=== PATIENT | male | born 1935 | race Caucasian/White ===

== ENCOUNTER 2017-03-30 08:51 | Emergency (ER) | payer MEDICARE, OTHER ==
--- NOTE | 2017-03-30 09:44 | RADIOLOGY REPORT (SQ) ---
EXAM DESCRIPTION: HIP LEFT AP/LATERAL COMPLETED DATE/TIME: 03/30/2017 9:32 am REASON FOR STUDY: hip pain COMPARISON: None. NUMBER OF VIEWS: Two views. TECHNIQUE: AP pelvis and additional frog-leg view of the left hip. LIMITATIONS: None. FINDINGS: MINERALIZATION: Normal. LEFT HIP: No fracture or dislocation. Joint space narrowing with sclerosis and small osteophytes. N o worrisome bone lesions. RIGHT HIP: No fracture or dislocation. Joint space narrowing with sclerosis and small osteophytes. No worrisome bone lesions. PUBIS AND ISCHIUM: No fracture. PELVIS: No fracture. There is relative radiolucency in the left iliac bone adjacent to the acetabulu m. SACRUM: No fracture or dislocation. No worrisome bone lesions. LOWER LUMBAR SPINE: No fracture or dislocation. No worrisome bone lesions. Degenerative disc disease . SOFT TISSUES: No findings. OTHER: No other significant finding. IMPRESSION: 1. MILD DEGENERATIVE CHANGES IN THE HIPS. NO ACUTE TRAUMATIC FINDINGS. 2. RELATIVE RADIOLUCENCY IN THE LEFT ILIAC BONE ADJACENT TO THE ACETABULUM, PARTICULARLY WHEN COMPARE D TO THE RIGHT SIDE. THIS COULD BE ARTIFACT DUE TO OVERLAPPING STRUCTURES AND OSTEOPENIA. CANNOT EX CLUDE POSSIBILITY OF A LYTIC LESION. CT SCAN MAY BE HELPFUL TO DETERMINE IF THERE IS ANY BONY PATHOL OGY. TECHNICAL DOCUMENTATION: JOB ID: [id number]- All Rights Reserved
[2017-03-30 10:30] LABS: ABSOLUTE BASOPHILS # (AUTO) 0.1 10^3/uL (0.0-0.2); ABSOLUTE EOSINOPHILS # (AUTO) 0.2 10^3/uL (0.0-0.6); ABSOLUTE LYMPHOCYTES (AUTO) 1.6 10^3/uL (0.5-4.7); ABSOLUTE MONOCYTES (AUTO) 0.8 10^3/uL (0.1-1.4); ABSOLUTE NEUT (AUTO) 6.7 10^3/uL (1.7-8.2); BASOPHILS % (AUTO) 0.6 % (0-2); EOSINOPHILS % (AUTO) 1.9 % (0-6); HEMATOCRIT 45.2 % (37.9-51.0); HGB HCT DIFFERENCE 2.8; LYMPHOCYTES % (AUTO) 17.6 % (13-45); MEAN CORPUSCULAR HEMOGLOBIN 31.1 pg (27.0-33.4); MEAN CORPUSCULAR HGB CONC 35.3 g/dL (32.0-36.0); MEAN CORPUSCULAR VOLUME 88 fl (80-97); MONOCYTES % (AUTO) 8.6 % (3-13); RED BLOOD COUNT 5.14 10^6/uL (4.35-5.55); RED CELL DISTRIBUTION WIDTH 12.6 % (11.5-14.0); SEGMENTED NEUTROPHILS % (AUTO) 71.3 % (42-78); WHITE BLOOD COUNT 9.4 10^3/uL (4.0-10.5)
--- NOTE | 2017-03-30 10:49 | ER Document Report ---
ED General - General Chief Complaint: Fall Stated Complaint: FALL/LEFT HIP PAIN Time Seen by Provider: 03/30/17 09:01 Mode of Arrival: Medic Information source: Patient Notes: 81-year-old male presents with complaints of left hip pain as well as difficulty swallowing. Patient notes hip pain has been ongoing now for weeks he took a fall has been able to ambulate. Patient also notes that he has been unable to swallow solid foods for approximately 2-3 weeks and has been eating soft pured food as a result. Patient denies any fevers or chills nausea vomiting or diarrhea notes the food gets stuck and comes back up a few times TRAVEL OUTSIDE OF THE [place] IN LAST 30 DAYS: No - HPI Onset: Other Onset/Duration: Persistent Quality of pain: Achy Severity: Mild Pain Level: 1 Associated symptoms: Body/muscle aches Exacerbated by: Movement Relieved by: Denies Similar symptoms previously: No Recently seen / treated by doctor: No - Related Data Allergies/Adverse Reactions: No Known Allergies Allergy (Verified 03/30/17 09:42) Past Medical History - Social History Smoking Status: Never Smoker Cigarette use (# per day): No Chew tobacco use (# tins/day): Yes Smoking Education Provided: No Frequency of alcohol use: None Drug Abuse: None Family History: Reviewed & Not Pertinent, Other - Past Medical History Cardiac Medical History: Reports: Hx Hypertension Renal/ Medical History: Denies: Hx Peritoneal Dialysis - Immunizations Hx Diphtheria, Pertussis, Tetanus Vaccination: Yes Review of Systems - Review of Systems Notes: REVIEW OF SYSTEMS: CONSTITUTIONAL : Denies fever, chills, or sweats. Denies recent illness. EENT: Admits to difficulty swallowing CARDIOVASCULAR: Denies chest pain. Denies palpitations or racing or irregular heart beat. Denies ankle edema. RESPIRATORY: Denies cough, cold, or chest congestion. Denies shortness of breath, difficulty breathing, or wheezing. GASTROINTESTINAL: Denies abdominal pain or distention. Denies nausea, vomiting , or diarrhea. Denies blood in vomitus, stools, or per rectum. Denies black, tarry stools. Denies constipation. GENITOURINARY: Denies difficulty urinating, painful urination, burning, frequency, blood in urine, or discharge. MUSCULOSKELETAL: Admits to hip pain SKIN: Denies rash, lesions or sores. HEMATOLOGIC : Denies easy bruising or bleeding. LYMPHATIC: Denies swollen, enlarged glands. NEUROLOGICAL: Denies confusion or altered mental status. Denies passing out or loss of consciousness. Denies dizziness or lightheadedness. Denies headache. Denies weakness or paralysis or loss of use of either side. Denies problems with gait or speech. Denies sensory loss, numbness, or tingling. Denies seizures. PSYCHIATRIC: Denies anxiety or stress. Denies depression, suicidal ideation, or homicidal ideation. ALL OTHER SYSTEMS REVIEWED AND NEGATIVE. Dictation was performed using [employer] voice recognition software PHYSICAL EXAMINATION: GENERAL: Well-appearing, well-nourished and in no acute distress. HEAD: Atraumatic, normocephalic. EYES: Pupils equal round and reactive to light, extraocular movements intact, sclera anicteric, conjunctiva are normal. ENT: Nares patent, oropharynx clear without exudates. Moist mucous membranes. NECK: Normal range of motion, supple without lymphadenopathy LUNGS: Breath sounds clear to auscultation bilaterally and equal. No wheezes rales or rhonchi. HEART: Regular rate and rhythm without murmurs ABDOMEN: Soft, nontender, nondistended abdomen. No guarding, no rebound. No masses appreciated. Musculoskeletal: Normal range of motion, no pitting or edema. No cyanosis. NEUROLOGICAL: Cranial nerves grossly intact. Normal speech, normal gait. Normal sensory, motor exams PSYCH: Normal mood, normal affect. SKIN: Warm, Dry, normal turgor, no rashes or lesions noted. Physical Exam - Vital signs Vitals: Temp Pulse Resp BP Pulse Ox 97.5 F 66 18 119/69 99 03/30/17 08:56 03/30/17 08:56 03/30/17 08:56 03/30/17 08:56 03/30/17 08:56 Course - Re-evaluation Re-evalutation: 03/30/17 12:18 Patient's images are concerning for a lytic lesion in his left hip as well as esophageal mass causing stricture. Patient was notified of these results as well as family member. I did speak with on-call oncologist and we will get the patient into the office immediately today - Vital Signs Vital signs: Temp Pulse Resp BP Pulse Ox 97.5 F 66 18 119/69 99 03/30/17 08:56 03/30/17 08:56 03/30/17 08:56 03/30/17 08:56 03/30/17 08:56 - Laboratory Result Diagrams: 03/30/17 10:18 03/30/17 10:18 - Diagnostic Test Radiology reviewed: Image reviewed, Reports reviewed - Lytic lesion noted of the hip, concerning for cancer, stricture of the throat concerning for cancer Discharge - Discharge Clinical Impression: Esophageal stricture, Lytic bone lesion of hip Condition: Stable Disposition: HOME, SELF-CARE Additional Instructions: You must go directly to the oncologist office upon discharge Referrals: LALITO RASMUSSEN MD [ACTIVE STAFF] - 03/30/17
--- NOTE | 2017-03-30 11:30 | RADIOLOGY REPORT (SQ) ---
EXAM DESCRIPTION: CT PELVIS WITHOUT COMPLETED DATE/TIME: 03/30/2017 10:49 am REASON FOR STUDY: bony lesion? COMPARISON: None. TECHNIQUE: CT scan of the pelvis performed without intravenous or oral contrast. Images reviewed wi th soft tissue and bone windows. Reconstructed coronal and sagittal MPR images reviewed. All images stored on PACS. All CT scanners at this facility use dose modulation, iterative reconstruction, and/or weight based d osing when appropriate to reduce radiation dose to as low as reasonably achievable (ALARA). [facility]: Dose Right [facility]: CareDose [facility]: Dose Right [facility]: Teradose 4D [facility]: [employer] RADIATION DOSE: 9.5mGy. LIMITATIONS: None. FINDINGS: PELVIC BONES: On images 45-67 of the coronal series there can be seen the large lytic lesi on in the left acetabulum and ilium. This appears to be an expansile lesion. There appears to be a cleavage plane between the mass and the internal obturator muscle. See image 78 series 2. The media l cortex appears to be either destroyed or markedly attenuated. VISUALIZED SPINE: No acute findings. HIP(S): Moderate degenerative joint changes are present. PELVIC SOFT TISSUES: Urinary bladder is normal. No intrinsic pelvic masses seen. There is no free f luid. EXTRAPELVIC SOFT TISSUES: No significant findings. OTHER: No other significant finding. IMPRESSION: There is a large lytic lesion on the left as described. Is there a history of known brian plasm? TECHNICAL DOCUMENTATION: JOB ID: [id number] Quality ID # [id number]: Final reports with documentation of one or more dose reduction techniques (e.g., Au tomated exposure control, adjustment of the mA and/or kV according to patient size, use of iterative reconstruction technique) 2010 [employer]- All Rights Reserved
[2017-03-30] MEDS ORDERED: MORPHINE SULFATE 10 MG/ML INJ IV ONE (12:10)
[2017-03-30] MEDS ORDERED: HYDROCOD/ACETAMIN 7.5-325 MG/15 ML ORAL SOLN UDCUP PO ONE (12:39)
--- NOTE | 2017-03-30 12:48 | RADIOLOGY REPORT (SQ) ---
EXAM DESCRIPTION: BARIUM SWALLOW ESOPHAGUS COMPLETED DATE/TIME: 03/30/2017 11:54 am REASON FOR STUDY: difficulty swallowing COMPARISON: None. TECHNIQUE: Under fluoroscopic guidance, patient ingested water soluble contrast and thin barium. Flu oroscopic spot images and routine radiographic images acquired and stored on PACS. 12 MM BARIUM TABLET GIVEN: Yes. Significant delay in the passage of tablet at GE junction at site of irregular narrowing for approxim ately 30 minutes. LIMITATIONS: None. FLUOROSCOPY TIME: 1.6 minutes 14 fluoroscopy images saved to PACS. FINDINGS: NEUROMUSCULAR COORDINATION OF SWALLOW: Normal. No aspiration. ESOPHAGEAL MOTILITY: Normal primary peristalsis. No esophageal spasm. ESOPHAGEAL MUCOSA: There is a fixed irregular stricture in the distal esophagus resulting in a mild d elay in the passage of barium and significant delay in the passage of a 12.5 mm barium tablet. This is concerning for malignancy an upper endoscopy is recommended for direct visualization. GASTRO-ESOPHAGEAL JUNCTION: A small sliding hiatal hernia is identified. No evidence gastroesophagea l reflux seen during the study. NON-GI TRACT STRUCTURES: No significant finding. OTHER: Incidentally noted are 2 moderate size duodenal diverticula. IMPRESSION: 1. FIXED IRREGULAR STRICTURE IN THE DISTAL ESOPHAGUS CONCERNING FOR MALIGNANCY, AND RES ULTING IN SIGNIFICANT DELAY IN THE PASSAGE OF 12 MM BARIUM TABLE ABOVE. UPPER ENDOSCOPY IS RECOMM ENDED FOR DIRECT VISUALIZATION. 2. SMALL SLIDING HIATAL HERNIA. 3. INCIDENTALLY NOTED 2 MODERATE SIZE DUODENAL DIVERTICULA. COMMENT: Report was called to Dr. Neumann at 1205 hours. Quality ID [id number]: Final reports for procedures using fluoroscopy that document radiation exposure pao laci, or exposure time and number of fluorographic images (if radiation exposure indices are not avail able) TECHNICAL DOCUMENTATION: JOB ID: [id number] [employer]- All Rights Reserved
[2017-03-30 12:57] LABS: ALANINE AMINOTRANSFERASE 30 U/L (21-72); ALKALINE PHOSPHATASE 138 U/L (38-126); ANION GAP 15 (5-19); ASPARTATE AMINO TRANSFERASE 22 U/L (17-59); BILIRUBIN,DIRECT 0.8 mg/dL (0.0-0.4); BILIRUBIN,TOTAL 1.6 mg/dL (0.2-1.3); BLOOD UREA NITROGEN 33 mg/dL (7-20); CALCIUM 9.6 mg/dL (8.4-10.2); CARBON DIOXIDE 20 mmol/L (22-30); CHLORIDE 104 mmol/L (98-107); CREATININE RESULT 1.91 mg/dL (0.52-1.25); GLUCOSE 95 mg/dL (75-110); SODIUM 139.3 mmol/L (137-145); TOTAL PROTEIN 7.1 g/dL (6.3-8.2)
[2017-03-30 13:29] VITALS: BP 178/60
== END 2017-03-30 13:28 | disposition home or self-care (01) ==
LOC: ER 08:51
DX: K22.2 Esophageal obstruction (principal); M89.9 Disorder of bone, unspecified; M25.552 Pain in left hip; W19.XXXA Unspecified fall, initial encounter; R13.10 Dysphagia, unspecified
CPT/HCPCS: 36415; 72192; 74220; 80053; 85025; 99284

== ENCOUNTER 2017-04-02 11:22 | Day surgery (SDC) | payer MEDICARE, OTHER ==
[~2017-04-02 11:22] MED LIST: DIPHENHYDRAMINE HCL 50 MG/ML VIAL ONE; EPINEPHRINE INJ 1 MG/10 ML DISP.SYRIN ONE; FENTANYL CITRATE INJ/PF 100 MCG/2 ML AMPUL ONE; FLUMAZENIL INJ 0.5 MG/5 ML VIAL IV ONE; GLUCAGON,HUMAN RECOMB 1 MG INJ ONE; MIDAZOLAM 2 MG/2 ML INJ ONE; NALOXONE HCL INJ/PF 0.4 MG/1 ML SDV ONE; ONDANSETRON HCL INJ/PF 4 MG/2 ML SDV ONE
--- NOTE | 2017-04-02 13:04 | Operative Report ---
Operative Report DATE OF SURGERY: 04/02/17 Operative Report: The risks benefits and alternatives of the procedure explained to the patient in detail and informed consent is obtained.A GIF Olympus video scope was inserted into the patient's mouth and hypopharynx, the esophagus is identified intubated and insufflated, the scope was then advanced through the esophagus stomach and duodenum ,retroflexion maneuver is done, the esophagus stomach and first and second portions of the duodenum examined PREOPERATIVE DIAGNOSIS: Dysphagia. Weight loss. 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 Hiatal hernia. Gastritis. Several duodenal ulcers, not actively bleeding OPERATION: EGD with biopsy SURGEON: ALLY BENDER ANESTHESIA: Moderate Sedation - 2 mg of Versed, 2.5 mg of fentanyl. Conscious sedation monitoring time 30 minutes. TISSUE REMOVED OR ALTERED: As described above. COMPLICATIONS: None. ESTIMATED BLOOD LOSS: None. INTRAOPERATIVE FINDINGS: As described above. PROCEDURE: Patient tolerated procedure well. No immediate postprocedure complications are noted. Patient discharged in good condition. Discharge date 04/02/2017. Discharge diet: Regular. Discharge activity: Regular. 1 week follow-up to discuss findings. Patient is instructed to call the office should there be any further problems or questions. We will wait on pathology. We will complete 1 L of normal saline prior to discharge. May require stent placement with PEG placement at a tertiary institution.
[2017-04-02 14:11] VITALS: BP 184/67
== END 2017-04-02 14:39 | disposition home or self-care (01) ==
LOC: END 11:22
PROVIDERS: ATTEND Internal Medicine Gastroenterology
PROC: 0DB58ZX Excision of Esophagus, Via Natural or Artificial Opening Endoscopic, Diagnostic (ICD-10-PCS; 2017-04-02)
PROC: 0DB68ZX Excision of Stomach, Via Natural or Artificial Opening Endoscopic, Diagnostic (ICD-10-PCS; principal; 2017-04-02 11:30)
DX: C80.1 Malignant (primary) neoplasm, unspecified (principal); K29.50 Unspecified chronic gastritis without bleeding; K44.9 Diaphragmatic hernia without obstruction or gangrene; K22.8 Other specified diseases of esophagus; R63.4 Abnormal weight loss; Z68.26 Body mass index [BMI] 26.0-26.9, adult; F17.210 Nicotine dependence, cigarettes, uncomplicated; I10 Essential (primary) hypertension; E78.00 Pure hypercholesterolemia, unspecified; Z79.899 Other long term (current) drug therapy; Z79.82 Long term (current) use of aspirin
CPT/HCPCS: 43239; 88342 ×2; 88305 ×2; J2250; J3010; J1610; J0171; J1200; J2310; J2405; J3490

== ENCOUNTER → 2017-04-03 | Outpatient (CLI) | payer MEDICARE, OTHER ==
--- NOTE | 2017-04-05 13:42 | RADIOLOGY REPORT (SQ) ---
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 TECHNIQUE: Blood glucose level was verified. Above dose of FDG was injected intravenously. 2-D seg mented attenuation correction images were obtained from the base of the skull to the midthighs. Nonc ontrast CT images were obtained for attenuation correction and fusion with emission images. CT image s were performed without oral or intravenous contrast and are not sensitive for parenchymal lesions. A series of overlapping emission PET images were obtained. Images reviewed and manipulated at [facility] work station by the radiologist. Images stored on PACS. LIMITATIONS: None. FINDINGS: HEAD AND NECK: No areas of abnormal metabolic activity in the soft tissues of the head and neck. CHEST: Distal esophageal circumferential increased activity from patient's esophageal cancer, SUV 8.6 . ABDOMEN AND PELVIS: Just below the hemidiaphragms, a 2 x 1 cm lymph node is present on axial image 12 1 between the right harman of the hemidiaphragm and inferior vena cava. This has SUV of 3.0. PROXIMAL LOWER EXTREMITIES: No areas of abnormal metabolic activity in the soft tissues of the lower extremities. BONES: Lytic destruction of the T5 spinous process is present thigh soft tissue difficult to measure , with SUV of 8.6. A right posterior 7th rib fracture is present with SUV of 4.8 which may be a pathologic fracture. In the right posterior innominate bone, a 3.5 x 3.2 cm lytic destructive lesion is present on axial i mage 171 with SUV of 7.3. Medial wall left acetabulum exhibits a lytic lesion, 7 cm AP x 3.5 cm transverse on axial image 212. This has SUV of 9.8. This completely destroys the medial wall of the left acetabulum. ADDITIONAL CT FINDINGS: Mucous membrane thickening left maxillary sinus. Heavily calcified carotid a nd coronary arteries. Small hiatal hernia. Periampullary duodenum diverticulum. Fat containing lef t inguinal hernia. OTHER: No other significant findings. IMPRESSION: Hypermetabolic lesion distal esophagus correlates with malignant lesion seen barium swal low 03/30/2017. 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
== END ==
LOC: RAD 16:30
PROVIDERS: ATTEND Internal Medicine
DX: C15.5 Malignant neoplasm of lower third of esophagus (principal)
CPT/HCPCS: 78815; A9552

== ENCOUNTER → 2017-04-10 | Outpatient (CLI) | payer MEDICARE, OTHER ==
--- NOTE | 2017-04-10 16:25 | RADIOLOGY REPORT (SQ) ---
EXAM DESCRIPTION: MRI THORACIC SPINE WITHOUT COMPLETED DATE/TIME: 04/10/2017 1:45 pm REASON FOR STUDY: MAL SUN OF LOWER THIRD OF ESOPHAGUS C15.5 MALIGNANT NEOPLASM OF LOWER THIRD OF ES OPHAGUS COMPARISON: PET-CT 04/03/2017 TECHNIQUE: Sagittal and Axial imaging includes T1, T2, STIR and gradient echo sequences. LIMITATIONS: None. FINDINGS: LOCALIZER: No worrisome findings. ALIGNMENT: Normal. VERTEBRAE: No thoracic compression deformities. BONE MARROW: The T5 spinous processes abnormal, with an expansile lytic lesion present, heterogeneous signal on T1 and T2. This measures 3.4 cm craniocaudad by 2.7 cm transverse by 1.8 cm AP, and corre lates with a hypermetabolic lesion on prior PET-CT 04/03/2017. No other lesions in the thoracic spine are present worrisome for metastatic disease. There is multilevel degenerative vertebral body endplate change with mixed fatty and sclerotic verteb ral endplate signal. HARDWARE: None in the spine. CORD: Normal in size and signal intensity. SOFT TISSUES: No soft tissue masses. THORACIC DISCS T1-T12: No significant disc herniation or central stenosis. Bilateral foraminal narro wing from facet arthropathy from T4-5 through T10-11. LOWER CERVICAL: Not well seen UPPER LUMBAR: Incompletely imaged. No significant spinal stenosis or exit foraminal stenosis. OTHER: No other significant finding. IMPRESSION: T5 spinous process lytic lesion worrisome for metastatic disease, correlates with a hype rmetabolic lytic lesion on PET-CT 04/03/2017. TECHNICAL DOCUMENTATION: JOB ID: [id number] [employer]- All Rights Reserved
== END ==
LOC: RAD 12:46
PROVIDERS: ATTEND Internal Medicine Hematology & Oncology
DX: C15.5 Malignant neoplasm of lower third of esophagus (principal)
CPT/HCPCS: 72146